=== PATIENT | female | born 1945 | race Caucasian/White ===

== ENCOUNTER → 2016-06-19 | Outpatient (CLI) | payer OTHER, MEDICARE | LOC: FIMAGING 12:55 | DX: Z12.31 Encounter for screening mammogram for malignant neoplasm of breast (principal) | CPT/HCPCS: G0202 ==

== ENCOUNTER → 2017-08-15 | Outpatient (CLI) | payer OTHER, MEDICARE | LOC: FIMAGING 08:33 | PROVIDERS: ATTEND Nurse Practitioner Women's Health | DX: Z12.31 Encounter for screening mammogram for malignant neoplasm of breast (principal) ==

== ENCOUNTER → 2017-12-23 | Outpatient (CLI) | payer OTHER, MEDICARE | LOC: FIMAGING 12:57 → FLAB 12:57 → EDSTATUS 13:57 | PROVIDERS: ATTEND Internal Medicine | DX: R22.2 Localized swelling, mass and lump, trunk (principal) ==

== ENCOUNTER → 2017-12-25 | Outpatient (CLI) | payer OTHER, MEDICARE ==
[~2017-12-25] MED LIST: IOPAMIDOL (ISOVUE-300) 100 ML BTL ONE
== END ==
LOC: FIMAGING 07:41
PROVIDERS: ATTEND Internal Medicine
DX: R91.8 Other nonspecific abnormal finding of lung field (principal); K76.89 Other specified diseases of liver
CPT/HCPCS: 71260; Q9967

== ENCOUNTER 2018-01-12 10:04 | Day surgery (SDC) | payer OTHER, MEDICARE ==
[~2018-01-12 10:04] MED LIST changes: +FLUMAZENIL 0.5 MG/5 ML MDV IVP PRN; -IOPAMIDOL (ISOVUE-300) 100 ML BTL ONE; +MIDAZOLAM 2 MG/2 ML VIAL IVP PRN; +NALOXONE HCL 0.4 MG/ML INJ IVP PRN; +fentaNYL 100 MCG/2 ML INJ IVP PRN
[2018-01-12] MEDS ORDERED: NS 1,000 ML IV SCH (10:15)
[2018-01-12 10:47] LABS: INR 0.97 (0.83-1.16); PROTIME(PATIENT) 13.1 SEC (12.0-15.0)
[2018-01-12] MEDS ORDERED: LIDOCAINE 1% 300 MG/30 ML SDV ONE (11:16)
[2018-01-12] MEDS ORDERED: FLUMAZENIL 0.5 MG/5 ML MDV IVP ONE (11:25)
[2018-01-12] MEDS ORDERED: NALOXONE HCL 0.4 MG/ML INJ ONE (11:25)
[2018-01-12] MEDS ORDERED: MIDAZOLAM 2 MG/2 ML VIAL ONE (11:26)
[2018-01-12] MEDS ORDERED: fentaNYL 100 MCG/2 ML INJ ONE (11:26)
[2018-01-12 16:03] VITALS: BP 107/57
== END 2018-01-12 16:10 | disposition home or self-care (01) ==
LOC: FIMAGING 10:04
PROVIDERS: ATTEND Internal Medicine
PROC: 0BBF3ZX Excision of Right Lower Lung Lobe, Percutaneous Approach, Diagnostic (ICD-10-PCS; principal; 2018-01-12 13:03)
DX: C34.31 Malignant neoplasm of lower lobe, right bronchus or lung (principal); J95.811 Postprocedural pneumothorax
CPT/HCPCS: J2250; J2310; J3010

== ENCOUNTER → 2018-04-06 | Outpatient (CLI) | payer OTHER, MEDICARE ==
[~2018-04-06] MED LIST changes: -FLUMAZENIL 0.5 MG/5 ML MDV IVP PRN; +IOPAMIDOL (ISOVUE-300) 100 ML BTL ONE; -MIDAZOLAM 2 MG/2 ML VIAL IVP PRN; -NALOXONE HCL 0.4 MG/ML INJ IVP PRN; -fentaNYL 100 MCG/2 ML INJ IVP PRN
== END ==
LOC: FIMAGING 09:49
PROVIDERS: ATTEND Internal Medicine
DX: Z08 Encounter for follow-up examination after completed treatment for malignant neoplasm (principal); C34.90 Malignant neoplasm of unspecified part of unspecified bronchus or lung
CPT/HCPCS: 71260; 74177; Q9967; 82565-PO

== ENCOUNTER → 2018-08-24 | Outpatient (CLI) | payer OTHER, MEDICARE | LOC: FIMAGING 11:53 | PROVIDERS: ATTEND Internal Medicine | DX: Z12.31 Encounter for screening mammogram for malignant neoplasm of breast (principal); Z85.3 Personal history of malignant neoplasm of breast ==